=== PATIENT | male | born 1990 | race Native Hawaiian/Other Pacific Islander ===

== ENCOUNTER 2020-07-10 21:31 | Emergency (ER) | payer OTHER ==
[~2020-07-10] VITALS: Ht 167.6 cm; Wt 113.4 kg
[2020-07-10 22:46] VITALS: BP 154/92; TEMP 98.6
== END 2020-07-10 22:46 | disposition home or self-care (01) ==
LOC: ED 21:31
DX: L60.0 Ingrowing nail (principal); L03.031 Cellulitis of right toe
CPT/HCPCS: 99282